=== PATIENT | male | born 1965 | race Caucasian/White ===

== ENCOUNTER 2017-07-02 07:04 | Day surgery (SDC) | payer MEDICAID ==
[2017-05-01 11:06] VITALS: BMI 34.4
[2017-07-02 07:45] VITALS: O2SAT 100
[2017-07-02] MEDS ORDERED: Propofol 10 mg/ml Inj (20 ML) ONE (08:01)
[2017-07-02] MEDS ORDERED: Ketamine 50 mg/ml Inj (10 ml) ONE (08:02)
[2017-07-02] MEDS ORDERED: Lactated Ringer's 500 ML IV SCH (08:15)
[2017-07-02 09:23] VITALS: TEMP 97
[2017-07-02 11:04] VITALS: BP 128/79; PULSE 79; RESP 18
== END 2017-07-02 10:20 | disposition home or self-care (01) ==
LOC: C.ENDO 07:04
PROVIDERS: ATTEND Internal Medicine Gastroenterology
DX: K29.60 Other gastritis without bleeding (principal); D50.9 Iron deficiency anemia, unspecified; K64.8 Other hemorrhoids; D12.2 Benign neoplasm of ascending colon; D12.4 Benign neoplasm of descending colon; D12.5 Benign neoplasm of sigmoid colon; D12.3 Benign neoplasm of transverse colon
CPT/HCPCS: 43239; 45388; 82948; 88305; 88313; 88342; J2704; J7120

== ENCOUNTER 2017-08-13 06:39 | Day surgery (SDC) | payer MEDICAID ==
[2017-07-09 06:35] VITALS: BMI 32.8
[2017-08-13] MEDS ORDERED: Lactated Ringer's 1,000 ML IV ONE (08:40)
[2017-08-13] MEDS ORDERED: Lidocaine Hydrochloride 5 ML INJ ONE (08:45)
[2017-08-13] MEDS ORDERED: Propofol 10 mg/ml Inj (20 ML) ONE ×2 (08:45→09:21)
[2017-08-13] MEDS ORDERED: Dextrose 50% VIAL Inj (50 ml) IV ONE (09:20)
[2017-08-13 10:16] VITALS: TEMP 96.3
[2017-08-13 11:54] VITALS: RESP 12; O2SAT 98
[2017-08-13 11:58] VITALS: BP 115/70; PULSE 85
== END 2017-08-13 11:00 | disposition home or self-care (01) ==
LOC: C.ENDO 06:39
PROVIDERS: ATTEND Internal Medicine Gastroenterology
DX: K62.5 Hemorrhage of anus and rectum (principal); D12.1 Benign neoplasm of appendix; D12.3 Benign neoplasm of transverse colon; K57.30 Diverticulosis of large intestine without perforation or abscess without bleeding; K64.1 Second degree hemorrhoids; E11.9 Type 2 diabetes mellitus without complications
CPT/HCPCS: 45380; 45385; 82948; 88305; J2704; J7120

== ENCOUNTER 2017-11-27 06:54 | Day surgery (SDC) | payer MEDICAID ==
[2017-11-26 08:09] VITALS: BMI 33.3
[2017-11-27] MEDS ORDERED: Bupivacaine HCl 0.25% PF (30 ml) Inj ONE (08:54)
[2017-11-27] MEDS ORDERED: Lidocaine/Epinephrine 1% 1:100000 10 ML IJ ONE (08:55)
[2017-11-27] MEDS ORDERED: ceFAZolin 1 gm FROZEN Premix 2 GM/100 ML ML IVPB ONE (08:56)
[2017-11-27] MEDS ORDERED: Propofol 10 mg/ml Inj (20 ML) ONE ×2 (09:03→09:47)
[2017-11-27] MEDS ORDERED: Midazolam 2 MG/2 ML VIAL ONE (09:04)
[2017-11-27] MEDS ORDERED: Rocuronium 10 mg/ml (5 ml) ONE (10:06)
[2017-11-27] MEDS ORDERED: Neostigmine Methylsulfate 3mg/3ml Syringe IV ONE (10:59)
[2017-11-27] MEDS ORDERED: Oxycodone/Acetaminophen 5/325 mg Tab PO ONE (11:16)
--- NOTE | 2017-11-27 11:21 | PCM.SURG1 ---
Surgeon's Initial Post Op Note - Surgeon's Notes Surgeon: Dr. Persaud [employer] Test Shop Mechanic: Merchant [id number], Brie GASCA Pre-Operative Diagnosis: Internal hemorrhoids Operative Findings: multiple hemorrhoids. Left and right lateral. None actively bleeding Post-Operative Diagnosis: as above Operation Performed: hemorrhoidectomy of left and right lateral with primary closure Specimen/Specimens Removed: R and left lateral hemorrhoids Estimated Blood Loss: EBL {In ML}: 15 Blood Products Given: N/A Drains Used: No Drains Post-Op Condition: Good Date of Surgery/Procedure: 11/27/17 Time of Surgery/Procedure: 11:21
[2017-11-27 12:51] VITALS: BP 136/72; PULSE 88; RESP 18; TEMP 97; O2SAT 100
--- NOTE | 2017-11-28 05:26 | OP ---
PROCEDURE DATE: 11/27/2017 PREOPERATIVE DIAGNOSES: 1. Bleeding per rectum. 2. Grade III hemorrhoid. 3. Status post multiple bandings. POSTOPERATIVE DIAGNOSIS: Grade III bleeding hemorrhoids, left lateral and right lateral. PROCEDURES DONE: 1. Examination under anesthesia. 2. Two-column hemorrhoidectomy. 3. Pudendal nerve block. SURGEON: The procedure was done by Bertram grissom MD HORTICULTURE SUPERVISOR: Margarita, PGY-1 resident and CAMPOS Polanco. TYPE OF ANESTHESIA: General endotracheal tube anesthesia. ESTIMATED BLOOD LOSS: Around 20 mL. DRAINS: None. PATHOLOGY: Two-column of the hemorrhoid was sent for the pathology, left lateral and right lateral. COMPLICATIONS: None. INTRAOPERATIVE FINDINGS: The patient had grade III large left lateral and right lateral hemorrhoids with erythema. There was no ulceration detected. The patient also had a right anterior hemorrhoid that was grade II, and there was no bleeding at the right anterior hemorrhoid. DESCRIPTION OF PROCEDURE: On intraoperative steps, this is a 52-year-old male who was diagnosed with bleeding per rectum, and the patient had multiple hemorrhoidal bandings done at office. The patient was seen in the office and consented for the hemorrhoidectomy, brought to the OR, placed supine on the operating table. After induction of anesthesia, the patient was placed in a prone Jackknife position. The perineal area was prepped and draped. The butt-cheek was taped apart, and the examination under anesthesia was done. The patient had left lateral large, right lateral large, and right anterior hemorrhoids. The patient had some erythema without ulceration of both lateral hemorrhoids. The patient had no fissure or fistula. An elliptical incision was made surrounding the left lateral large hemorrhoid, and dissection was carried down in the mucocutaneous junction. Internal sphincter was identified, and hemorrhoid was completely excised. The pedicle was ligated 2 times with 0 Vicryl, and the wound was closed with #2 PDS continuous suture as well as with the second layer of the 4-0 Vicryl suture. Now, another elliptical incision was made surrounding the right lateral hemorrhoid, and the dissection was carried deep up to the pedicle. Pedicle was ligated 2 times. The wound was closed with 2-0 PDS continuous sutures and 4-0 Vicryl interrupted sutures, and dry sterile dressing was applied. After completion of the procedure, 10:10 mL of lidocaine with Marcaine was injected into the pudendal nerve area, first on the right side and then on the left side. Dry sterile dressing was applied. The patient tolerated the procedure well. Count of the instrument and gauze was correct. There was no apparent complication. The patient was extubated in the OR and sent to the Postanesthesia Care Unit in stable condition. Bertram Persaud MD
== END 2017-11-27 15:07 | disposition home or self-care (01) ==
LOC: C.SDS 06:54
PROVIDERS: ATTEND Surgery Surgical Critical Care
DX: K64.2 Third degree hemorrhoids (principal); Z87.19 Personal history of other diseases of the digestive system; K62.5 Hemorrhage of anus and rectum; I10 Essential (primary) hypertension; E78.5 Hyperlipidemia, unspecified; E05.90 Thyrotoxicosis, unspecified without thyrotoxic crisis or storm; E11.9 Type 2 diabetes mellitus without complications
CPT/HCPCS: 36415; 46260; 82948; 86850; 86900; 88304; J0690; J1885; J2001; J2250; J2270; J2405; J2704; J2710; J3010

== ENCOUNTER 2017-11-30 07:59 | Observation (INO) | payer MEDICAID ==
[2017-11-30 07:59] VITALS: BMI 33.3
[2017-11-30 08:54] LABS: URINE BILIRUBIN NEGATIVE (NEGATIVE); URINE BLOOD NEGATIVE (NEGATIVE); URINE CLARITY Clear (Clear); URINE COLOR Yellow (YELLOW); URINE GLUCOSE (UA) NORMAL (Normal); URINE LEUKOCYTE ESTERASE NEG Leu/uL (Negative); URINE PROTEIN NEGATIVE (NEGATIVE); URINE UROBILINOGEN NORMAL mg/dL (0.2-1.0)
[2017-11-30 08:57] LABS: BASO % 0.6 % (0.0-2.0); EOS % 0.5 % (0.0-4.0); HEMOGLOBIN 12.9 g/dL (12.0-18.0); LYMPH # 1.2 K/uL (1.0-4.3); LYMPH % 16.2 % (20.0-40.0); MEAN CELL VOLUME 76.7 fL (80.0-94.0); MEAN CORPUSCULAR HEMOGLOBIN 25.5 pg (27.0-31.0); MEAN CORPUSCULAR HGB CONC 33.2 g/dL (33.0-37.0); MEAN PLATELET VOLUME 8.2 fL (7.2-11.7); MONO # 0.3 K/uL (0.0-0.8); MONO % 4.7 % (0.0-10.0); NEUT # 5.6 K/uL (1.8-7.0); NRBC % 0.1 % (0.0-2.0); RBC 5.04 Mil/uL (4.40-5.90); RED CELL DISTRIBUTION WIDTH 22.9 % (11.5-14.5); WHITE BLOOD COUNT 7.2 K/uL (4.8-10.8)
--- NOTE | 2017-11-30 08:59 | C.PDOC ---
History Of Present Illness 52 y/o presents with abdominal pain and distension since last night, unable to urinate since last night. pt had hemorrhoidectomy on Fri and c/o severe rectal pain. pt sts urinating has been difficult since surgery. no hx bph. pt had bm last night. no vomiting, fever or chills. Time Seen by Provider: 11/30/17 08:16 Chief Complaint (Nursing): Male Genitourinary History Per: Patient History/Exam Limitations: no limitations Onset/Duration Of Symptoms: Days (1) Current Symptoms Are (Timing): Worse Severity: Severe Quality Of Discomfort: "Pain" Associated Symptoms: Urinary Symptoms. denies: Fever, Chills, Nausea, Vomiting Alleviating Factors: None Past Medical History Reviewed: Historical Data, Nursing Documentation, Vital Signs Vital Signs: Last Vital Signs Temp 99.3 F 11/30/17 11:50 Pulse 93 H 11/30/17 11:50 Resp 18 11/30/17 11:50 BP 138/78 11/30/17 11:50 Pulse Ox 95 11/30/17 11:50 - Medical History PMH: Back Problems, Diabetes (type II), HTN, Hypercholesterolemia, Hyperlipidemia, Sleep Apnea (CPAP), TIA Denies: Chronic Kidney Disease Surgical History: Endoscopy Other Surgeries: hemorrhoidectomy 11/28/17 - [facility] INJECT/INFUSE NEC (08/29/14) Family History: States: Unknown Family Hx - Social History Hx Alcohol Use: No Hx Substance Use: No - Immunization History Hx Tetanus Toxoid Vaccination: No Hx Influenza Vaccination: No Hx Pneumococcal Vaccination: No Review Of Systems Constitutional: Negative for: Fever, Chills Cardiovascular: Negative for: Chest Pain Gastrointestinal: Positive for: Abdominal Pain, Rectal Pain. Negative for: Nausea, Vomiting, Diarrhea, Constipation Genitourinary: Positive for: Other (unable to urinate since last night) Skin: Negative for: Rash Neurological: Negative for: Weakness, Numbness Physical Exam - Physical Exam Appears: Non-toxic, In Acute Distress Skin: Warm, Dry Head: Atraumatic, Normacephalic Neck: Supple Chest: No Tenderness Cardiovascular: Rhythm Regular, No Murmur Gastrointestinal/Abdominal: Bowel Sounds, Tenderness (suprpapubic), Distention Rectal: Deferred (pt unable to tolerate exam) Male Genital: Normal Inspection, No Testicular Tenderness, No Testicular Swelling, No Scrotal Swelling, Circumcised Extremity: Normal ROM ED Course And Treatment - Laboratory Results Result Diagrams: 11/30/17 08:53 11/30/17 08:53 Medical Decision Making Medical Decision Makin52 y/o male wiht rectal pian s/p surgery on thu with urinary retention: kruse catheter ua/uc labs surgical consult Disposition Discussed With DrSierra: Bertram Persaud Doctor Will See Patient In The: Hospital - Disposition Disposition: HOSPITALIZED Disposition Time: 10:34 Condition: GOOD - Clinical Impression Clinical Impression: Urinary retention, Rectal pain
[2017-11-30 09:15] LABS: ALB/GLOB RATIO 1.3 (1.0-2.1); ALBUMIN 4.8 g/dL (3.5-5.0); ALT/SGPT 25 U/L (21-72); AST/SGOT 17 U/L (17-59); BLOOD UREA NITROGEN 9 mg/dL (9-20); CALCIUM 8.9 mg/dl (8.6-10.4); GFR AFRICAN-AMERICAN > 60; GFR NON-AFRICAN AMERICAN > 60
[2017-11-30] MEDS ORDERED: Oxycodone/Acetaminophen 5/325 mg Tab PO PRN (10:42)
[2017-11-30] MEDS ORDERED: Sodium Chloride 0.9% 1,000 ML IV SCH (10:45)
--- NOTE | 2017-11-30 10:50 | CP.PCM.HP ---
History of Present Illness - History of Present Illness History of Present Illness: General Surgery H&P for Dr. Persaud This is a 52M with a PMH of HTN, DM, HLD, RENÉE and Hemorrhoids who presents today to the ED complaining of difficulty urinating and anorectal pain since his hemorrhoid surgery on Thursday. He reports he feels as though there is something loose hanging from his anus. He denies any urinary retention in the past. He denies any fevers or chills at home. He reports he is moving his bowels and passing gas. PMH: HTN, DM, HLD, RENÉE PSH: Heorrhoidectomy ALL: NKDA Socia: Denies Tobacco, ETOH, Drugs Present on Admission - Present on Admission Any Indicators Present on Admission: No Review of Systems - Review of Systems All systems: reviewed and no additional remarkable complaints except - Constitutional Constitutional: absent: Anorexia, Chills, Fever - EENT Eyes: absent: Blurred Vision, Change in Vision Ears: absent: Tinnitus, Dizziness - Cardiovascular Cardiovascular: absent: Chest Pain, Chest Pain at Rest, Dyspnea - Respiratory Respiratory: absent: Cough, Dyspnea - Gastrointestinal Gastrointestinal: absent: Abdominal Pain, Diarrhea, Nausea, Vomiting - Genitourinary Genitourinary: Difficulty Urinating Past Patient History - Infectious Disease Hx of Infectious Diseases: None - Past Medical History & Family History Past Medical History?: Yes - Past Social History Smoking Status: Never Smoked - CARDIAC Hx Hypercholesterolemia: Yes Hx Hypertension: Yes - PULMONARY Hx Sleep Apnea: Yes (CPAP) - NEUROLOGICAL Hx Transient Ischemic Attacks (TIA): Yes - HEENT Hx HEENT Problems: No - RENAL Hx Chronic Kidney Disease: No - ENDOCRINE/METABOLIC Hx Endocrine Disorders: Yes Hx Diabetes Mellitus Type 2: Yes - INTEGUMENTARY Hx Dermatological Problems: No - MUSCULOSKELETAL/RHEUMATOLOGICAL Hx Musculoskeletal Disorders: Yes Hx Back Pain: Yes Hx Falls: No Hx Herniated Disk: No - GASTROINTESTINAL Hx Gastrointestinal Disorders: Yes Hx Hemorrhoids: Yes Hx Ulcer: Yes - GENITOURINARY/GYNECOLOGICAL Hx Genitourinary Disorders: No - PSYCHIATRIC Hx Substance Use: No - SURGICAL HISTORY Hx Surgeries: Yes Other/Comment: Endoscopy - ANESTHESIA Hx Anesthesia: Yes Hx Anesthesia Reactions: No Hx Malignant Hyperthermia: No Meds Allergies/Adverse Reactions: Allergies Allergy/AdvReac Type Severity Reaction Status Date / Time No Known Allergies Allergy Verified 11/30/17 08:06 Physical Exam - Constitutional Appears: Non-toxic, No Acute Distress - Head Exam Head Exam: ATRAUMATIC, NORMOCEPHALIC - Eye Exam Eye Exam: EOMI, Normal appearance - ENT Exam ENT Exam: Mucous Membranes Moist - Respiratory Exam Respiratory Exam: NORMAL BREATHING PATTERN - Cardiovascular Exam Cardiovascular Exam: +S1, +S2 - GI/Abdominal Exam GI & Abdominal Exam: Soft. absent: Distended, Firm, Guarding, Hernia, Rigid, Tenderness - Rectal Exam Rectal Exam: NORMAL INSPECTION Additional comments: Refused digital rectal exam - Extremities Exam Extremities exam: Positive for: normal inspection - Neurological Exam Neurological exam: Alert, Oriented x3 - Psychiatric Exam Psychiatric exam: Normal Affect, Normal Mood - Skin Skin Exam: Dry, Intact Results - Vital Signs Recent Vital Signs: Last Vital Signs Temp 98 F 11/30/17 08:03 Pulse 90 11/30/17 08:03 Resp 16 11/30/17 08:03 BP 128/89 11/30/17 08:03 Pulse Ox - Labs Result Diagrams: 11/30/17 08:53 11/30/17 08:53 Labs: Laboratory Results - last 24 hr 11/30/17 11/30/17 11/30/17 08:43 08:53 08:53 WBC 7.2 D RBC 5.04 Hgb 12.9 Hct 38.7 MCV 76.7 L MCH 25.5 L MCHC 33.2 RDW 22.9 H Plt Count 186 MPV 8.2 Neut % (Auto) 78.0 H Lymph % (Auto) 16.2 L [place] % (Auto) 4.7 Eos % (Auto) 0.5 Baso % (Auto) 0.6 Neut # (Auto) 5.6 Lymph # (Auto) 1.2 [place] # (Auto) 0.3 Eos # (Auto) 0.0 Baso # (Auto) 0.0 Sodium 138 Potassium 4.4 Chloride 98 Carbon Dioxide 27 Anion Gap 17 BUN 9 Creatinine 0.7 L Est GFR ( Amer) > 60 Est GFR (Non-Af Amer) > 60 Random Glucose 121 H Calcium 8.9 Total Bilirubin 0.7 AST 17 D ALT 25 Alkaline Phosphatase 54 Total Protein 8.4 H Albumin 4.8 Globulin 3.6 Albumin/Globulin Ratio 1.3 Urine Color Yellow Urine Clarity Clear Urine pH 6.0 Ur Specific Archie 1.011 Urine Protein Negative Urine Glucose (UA) Normal Urine Ketones Negative Urine Blood Negative Urine Nitrate Negative Urine Bilirubin Negative Urine Urobilinogen Normal Ur Leukocyte Esterase Neg Urine WBC (Auto) < 1 Urine RBC (Auto) < 1 Assessment & Plan - Assessment and Plan (Free Text) Assessment: 52M POD#3 s/p Hemmorhoidectomy with difficulty urinating Plan: D/C Figueredo IVF Pain control for post op pain Flow max Monitor Output D/W Dr. Hung Motta PGY2
[2017-11-30] MEDS ORDERED: Sodium Chloride 0.9% 1,000 ML ONE (10:52)
[2017-11-30 16:36] VITALS: RESP 20
[2017-11-30] MEDS ORDERED: Oxycodone/Acetaminophen 5/325 mg Tab PO STA (16:37)
[2017-11-30 16:57] VITALS: BP 147/86; PULSE 101; TEMP 99.4; O2SAT 98
== END 2017-11-30 19:42 | disposition home or self-care (01) ==
LOC: C.ER 07:59 → C.9E 10:33 → C.5S 10:56
PROVIDERS: ADMIT Surgery Surgical Critical Care; ATTEND Surgery Surgical Critical Care
DX: N99.89 Other postprocedural complications and disorders of genitourinary system (principal); R33.8 Other retention of urine; Y83.8 Other surgical procedures as the cause of abnormal reaction of the patient, or of later complication, without mention of misadventure at the time of the procedure; K64.9 Unspecified hemorrhoids; E11.9 Type 2 diabetes mellitus without complications; E78.00 Pure hypercholesterolemia, unspecified; E78.5 Hyperlipidemia, unspecified; G47.33 Obstructive sleep apnea (adult) (pediatric); I10 Essential (primary) hypertension; Z86.73 Personal history of transient ischemic attack (TIA), and cerebral infarction without residual deficits
CPT/HCPCS: 80053; 81001; 85025; 87086; 99285; G0378; J7030